=== PATIENT | female | born 1975 ===

== ENCOUNTER 2019-12-19 01:41 | Emergency (ER) | payer SELFPAY ==
[2019-12-19] MEDS ORDERED: ACETAMINOPHEN 500 MG TAB ONE (03:05)
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
[2019-12-19 04:53] VITALS: TEMP 96.7
[2019-12-19 04:57] VITALS: O2SAT 98
[2019-12-19 04:59] VITALS: BP 114/74
--- NOTE | 2019-12-19 14:23 | RAD REPORT ---
EXAM DESCRIPTION: Shoulder Left 2 View EXAM DESCRIPTION: Shoulder Left 2 View CLINICAL HISTORY: Trauma/pain COMPARISON: None. FINDINGS: 2 views of the left shoulder. No acute fracture or dislocation. Normal osseous mineralizat ion. No acute abnormalities of visualized left ribs. IMPRESSION: 1. No acute fracture or dislocation. Electronically signed by: Cash Valdez 12/19/2019 4:07 AM CDT Due to temporary technical issues with the PACS/Fluency reporting system, reports are being signed by the in house radiologist without review as a courtesy to ensure prompt reporting. The interpreting r adiologist is fully responsible for the content of the report.
--- NOTE | 2019-12-19 14:24 | RAD REPORT ---
EXAM DESCRIPTION: Head C Spine Mpr Wo Con CLINICAL HISTORY: Trauma/pain COMPARISON: None available TECHNIQUE: Axial CT of the head obtained from the skull apex to the skull base without contrast. Axi al CT images of the cervical spine obtained from the skull base through the thoracic inlet. Sagittal and coronal reformatted images available. FINDINGS: CT head: No acute intracranial hemorrhage identified. No mass, mass effect, shift of the midline, abnormal ext ra-axial fluid collection or CT evidence of acute ischemic change identified. The ventricular system is unremarkable. No acute abnormalities of the supratentorial white matter, basal ganglia, cerebell um, or brainstem. The visualized paranasal sinuses and the mastoids are clear. No skull fracture identified. Visualized orbits and globes are unremarkable. Cervical CT: Straightening of the cervical lordosis may be secondary to patient positioning. The atlantoaxial, a tlantodental, and occipitoatlantal intervals are preserved. No fracture identified. Vertebral body height preserved. Prevertebral soft tissues are unremarkable. Intervertebral disc height relatively well-preserved. Mild multilevel endplate spondylosis. Visualized skull base is intact. No fracture of the visualized facial bones. Visualized mastoid air c ells and paranasal sinuses are well aerated. Visualized thyroid is unremarkable. No cervical lymphadenopathy. No pneumothorax in the visualized lung apices. IMPRESSION: 1. No acute intracranial abnormality. 2. No acute fracture or subluxation of the cervical spine. This exam was performed according to our departmental dose-optimization program, which includes autom ated exposure control, adjustment of the mA and/or kV according to patient size and/or use of iterati ve reconstruction technique. Electronically signed by: Cash Valdez 12/19/2019 3:26 AM CDT Due to temporary technical issues with the PACS/Fluency reporting system, reports are being signed by the in house radiologist without review as a courtesy to ensure prompt reporting. The interpreting r adiologist is fully responsible for the content of the report.
--- NOTE | 2019-12-19 15:07 | RAD REPORT ---
EXAM DESCRIPTION: CT of the thoracic spine without contrast. CLINICAL HISTORY: Trauma/pain COMPARISON: None available TECHNIQUE: Axial CT of the thoracic spine obtained without contrast. FINDINGS: Alignment of the thoracic spine is maintained without evidence of subluxation. No fractu re identified. Vertebral body height preserved. Prevertebral soft tissues are unremarkable. Intervertebral disc height preserved. Minimal endplate spondylosis. Scarring and emphysematous change in the lung apices. No pneumothorax. No acute abnormalities in the mediastinal soft calcified nonobstructing left nephrolithiasis. Left upper lobe calcified granuloma. IMPRESSION: 1. No acute fracture or subluxation of the thoracic spine. This exam was performed according to our departmental dose-optimization program, which includes autom ated exposure control, adjustment of the mA and/or kV according to patient size and/or use of iterati ve reconstruction technique. Electronically signed by: Cash Valdez 12/19/2019 3:30 AM CDT Due to temporary technical issues with the PACS/Fluency reporting system, reports are being signed by the in house radiologist without review as a courtesy to ensure prompt reporting. The interpreting r adiologist is fully responsible for the content of the report.
--- NOTE | 2019-12-19 15:08 | RAD REPORT ---
EXAM DESCRIPTION: CT of the lumbar spine without contrast. CLINICAL HISTORY: Trauma/pain COMPARISON: None available TECHNIQUE: Axial CT of the lumbar spine obtained without contrast. FINDINGS: Alignment of the lumbar spine is maintained without evidence of subluxation. No fracture identified. Vertebral body height preserved. Prevertebral soft tissues are unremarkable. Intervertebral disc height relatively well-preserved. Mild multilevel endplate spondylosis. No signif icant osseous central canal nor neural foraminal narrowing. Aortoiliac atherosclerosis. Left nephrolithiasis. IMPRESSION: 1. No acute fracture or subluxation of the lumbar spine. This exam was performed according to our departmental dose-optimization program, which includes autom ated exposure control, adjustment of the mA and/or kV according to patient size and/or use of iterati ve reconstruction technique. Electronically signed by: Cash Valdez 12/19/2019 3:31 AM CDT Due to temporary technical issues with the PACS/Fluency reporting system, reports are being signed by the in house radiologist without review as a courtesy to ensure prompt reporting. The interpreting r adiologist is fully responsible for the content of the report.
== END 2019-12-19 04:44 | disposition home or self-care (01) ==
LOC: ER 01:41
DX: S20.229A Contusion of unspecified back wall of thorax, initial encounter (principal); S40.012A Contusion of left shoulder, initial encounter; F17.210 Nicotine dependence, cigarettes, uncomplicated; Z88.5 Allergy status to narcotic agent
CPT/HCPCS: 70450; 72125; 72128; 72131; 99284